=== PATIENT | female | born 1950 | race Caucasian/White ===

== ENCOUNTER 2017-05-22 12:08 | Outpatient (CLI) | payer MEDICARE, OTHER ==
--- NOTE | 2017-05-26 17:54 | Mammography Report ---
DIGITAL SCREENING MAMMOGRAM: 05/22/2017 CLINICAL INDICATION: A 66-year-old with family history of breast cancer, history of late childbearin g for screening. COMPARISON: 03/2014, 01/2013, 11/2011, 07/2009 TECHNIQUE: Routine CC and MLO projections were obtained of the breasts. FINDINGS: The breasts again demonstrate heterogeneously dense fibroglandular parenchyma bilaterally. In the left outer breast, best seen on the CC projection, there is a possible nodule. Further eval uation with spot compression views and possible ultrasound is recommended. No mammographically suspi cious findings are appreciated in the right breast. IMPRESSION: INCOMPLETE EXAMINATION. RECOMMENDATION: Additional evaluation of the left breast as above. BIRADS CATEGORY 0 - INCOMPLETE. STANDARD QUALIFYING STATEMENTS 1. This examination was reviewed with the aid of Computer-Aided Detection (CAD). 2. A negative or benign imaging report should not delay biopsy if clinically suspicious findings are present. Consider surgical consultation if warranted. More than 5% of cancers are not identified by i maging. 3. Dense breasts may obscure an underlying neoplasm. JOB #: [id number] EXT JOB #:[id number]
== END 2017-05-22 12:09 | disposition home or self-care (01) ==
LOC: DI.S 12:08
PROVIDERS: ATTEND Internal Medicine
DX: Z12.31 Encounter for screening mammogram for malignant neoplasm of breast (principal); R92.8 Other abnormal and inconclusive findings on diagnostic imaging of breast; Z80.3 Family history of malignant neoplasm of breast
CPT/HCPCS: 77067

== ENCOUNTER 2017-06-09 13:46 | Outpatient (CLI) | payer MEDICARE, OTHER ==
--- NOTE | 2017-06-09 16:35 | Mammography Report ---
DIGITAL DIAGNOSTIC LEFT MAMMOGRAM: 06/09/2017 CLINICAL INDICATION: Possible nodule on screening. TECHNIQUE: Left true lateral and spot compression views. COMPARISON: 05/22/2017, 04/04/2014, 02/04/2013, 12/17/2011, 08/14/2009. FINDINGS: The left breast again demonstrates heterogeneously dense fibroglandular parenchyma. A poss ible nodule persists in the left upper outer central breast, approximately 1:30 position 6 cm from th e nipple. Further evaluation with left breast ultrasound is recommended. Ultrasound is scheduled for 06/11/2017 at 11:45 a.m. IMPRESSION: INCOMPLETE EXAMINATION. RECOMMENDATION: LEFT BREAST ULTRASOUND, SCHEDULED FOR 06/11/2017 AT 11:45 AM. BIRADS CATEGORY 0-INCOMPLETE. STANDARD QUALIFYING STATEMENTS 1. This examination was reviewed with the aid of Computer-Aided Detection (CAD). 2. A negative or benign imaging report should not delay biopsy if clinically suspicious findings are present. Consider surgical consultation if warranted. More than 5% of cancers are not identified by i maging. 3. Dense breasts may obscure an underlying neoplasm. JOB #: [id number] EXT JOB #:[id number]
== END 2017-06-09 13:47 | disposition home or self-care (01) ==
LOC: DI 13:46
PROVIDERS: ATTEND Internal Medicine
DX: R92.8 Other abnormal and inconclusive findings on diagnostic imaging of breast (principal)

== ENCOUNTER 2017-06-11 11:33 | Outpatient (CLI) | payer MEDICARE, OTHER ==
--- NOTE | 2017-06-11 12:21 | Ultrasound Report ---
LEFT BREAST ULTRASOUND: 06/11/2017 CLINICAL INDICATION: Persistent density on mammogram. TECHNIQUE: Real-time scanning was performed with credit resolution representative static images obtained. FINDINGS: Ultrasound of the left upper outer quadrant was performed. At the 1 o'clock position, 4 c m from the nipple, there is a 5 x 4 x 3 mm cyst. No sonographically suspicious findings are identifi ed. IMPRESSION: SMALL EMBEDDED CYST. RECOMMENDATION: Routine annual screening unless otherwise clinically indicated. BIRADS CATEGORY 2 - BENIGN FINDINGS. JOB #: [id number] EXT JOB #:[id number]
== END 2017-06-11 11:34 | disposition home or self-care (01) ==
LOC: DI 11:33
PROVIDERS: ATTEND Internal Medicine
DX: N60.02 Solitary cyst of left breast (principal)
CPT/HCPCS: 76642

== ENCOUNTER 2017-09-03 10:27 | Outpatient (CLI) | payer MEDICARE, OTHER ==
[2017-09-03 17:59] LABS: BASOPHILS # (AUTO) 0.1 10^3/uL (0.0-0.1); BASOPHILS % (AUTO) 2.2 %; EOSINOPHILS # (AUTO) 0.1 10^3/uL (0.0-0.7); EOSINOPHILS % (AUTO) 2.5 %; LYMPHOCYTES # (AUTO) 1.8 10^3/uL (1.5-3.5); LYMPHOCYTES % (AUTO) 33.6 %; MEAN CORPUSCULAR HEMOGLOBIN 28.7 pg (27.0-31.0); MEAN CORPUSCULAR HGB CONC 33.3 g/dL (32.0-36.0); MEAN CORPUSCULAR VOLUME 86.1 fL (81.0-99.0); MEAN PLATELET VOLUME 10.2 fL (7.9-10.8); MONOCYTES # (AUTO) 0.5 10^3/uL (0.0-1.0); MONOCYTES % (AUTO) 9.3 %; NEUTROPHILS # (AUTO) 2.9 10^3/uL (1.5-6.6); NEUTROPHILS % (AUTO) 52.4 %; NUCLEATED RED BLOOD CELLS AUTO 0.1 /100WBC; RED BLOOD COUNT 5.23 10^6/uL (4.20-5.40); RED CELL DISTRIBUTION WIDTH 13.8 % (12.0-15.0); UNCORRECTED WHITE BLOOD COUNT 5.5 x10^3/uL; WHITE BLOOD COUNT 5.5 x10^3/uL (4.8-10.8)
[2017-09-03 18:17] LABS: ALBUMIN/GLOBULIN RATIO 1.3 (1.0-2.2); BILIRUBIN,TOTAL 0.6 mg/dL (0.2-1.0); CALCIUM 9.1 mg/dL (8.5-10.3); CREATININE 0.9 mg/dL (0.4-1.0); TOTAL PROTEIN 7.7 g/dL (6.7-8.2)
== END 2017-09-03 10:28 | disposition home or self-care (01) ==
LOC: LAB.F 10:27
PROVIDERS: ATTEND Physician Assistant Medical
DX: Z51.81 Encounter for therapeutic drug level monitoring (principal); E03.9 Hypothyroidism, unspecified
CPT/HCPCS: 36415; 80053; 84443; 85025

== ENCOUNTER 2018-04-06 09:06 | Outpatient (CLI) | payer MEDICARE, OTHER | END 2018-04-06 09:07 | disposition home or self-care (01) | LOC: LAB.F 09:06 | PROVIDERS: ATTEND Physician Assistant Medical | DX: G47.9 Sleep disorder, unspecified (principal); E03.9 Hypothyroidism, unspecified | CPT/HCPCS: 36415; 84439; 84443; 84481 ==

== ENCOUNTER 2018-07-27 15:00 | Outpatient (CLI) | payer MEDICARE, OTHER ==
[2018-07-27 17:43] LABS: BASOPHILS # (AUTO) 0.1 10^3/uL (0.0-0.1); BASOPHILS % (AUTO) 1.1 %; EOSINOPHILS # (AUTO) 0.1 10^3/uL (0.0-0.7); EOSINOPHILS % (AUTO) 1.9 %; HGB - HEMOGLOBIN 13.3 g/dL (12.0-16.0); LYMPHOCYTES % (AUTO) 35.1 %; MEAN CORPUSCULAR HEMOGLOBIN 28.2 pg (27.0-31.0); MEAN CORPUSCULAR HGB CONC 33.7 g/dL (32.0-36.0); MEAN CORPUSCULAR VOLUME 83.7 fL (81.0-99.0); MEAN PLATELET VOLUME 9.4 fL (7.9-10.8); MONOCYTES # (AUTO) 0.5 10^3/uL (0.0-1.0); MONOCYTES % (AUTO) 7.9 %; NEUTROPHILS # (AUTO) 3.1 10^3/uL (1.5-6.6); PLT - PLATELET COUNT 279 10^3/uL (130-450); RED CELL DISTRIBUTION WIDTH 14.3 % (12.0-15.0); WHITE BLOOD COUNT 5.8 x10^3/uL (4.8-10.8)
[2018-07-27 18:53] LABS: ALBUMIN 4.1 g/dL (3.2-5.5); ALBUMIN/GLOBULIN RATIO 1.3 (1.0-2.2); BILIRUBIN,TOTAL 0.3 mg/dL (0.2-1.0); CREATININE 0.3 mg/dL (0.4-1.0); TOTAL PROTEIN 7.3 g/dL (6.7-8.2)
== END 2018-07-27 15:01 | disposition home or self-care (01) ==
LOC: LAB.F 15:00
PROVIDERS: ATTEND Physician Assistant Medical
DX: Z51.81 Encounter for therapeutic drug level monitoring (principal); E03.9 Hypothyroidism, unspecified
CPT/HCPCS: 36415; 80053; 84443; 85025

== ENCOUNTER 2019-02-05 09:27 | Outpatient (CLI) | payer MEDICARE, OTHER ==
[2019-02-05 18:15] LABS: CREATININE 0.9 mg/dL (0.4-1.0)
== END 2019-02-05 09:28 | disposition home or self-care (01) ==
LOC: LAB.F 09:27
PROVIDERS: ATTEND Registered Nurse
DX: M54.16 Radiculopathy, lumbar region (principal)
CPT/HCPCS: 36415; 82565

== ENCOUNTER 2019-04-02 07:15 | Outpatient (CLI) | payer MEDICARE, OTHER | END 2019-04-02 23:59 | disposition home or self-care (01) | LOC: LAB.R 07:15 | PROVIDERS: ATTEND Physician Assistant Medical | DX: N39.0 Urinary tract infection, site not specified (principal) | CPT/HCPCS: 87086 ==

== ENCOUNTER 2019-05-17 12:13 | Outpatient (CLI) | payer MEDICARE, OTHER | END 2019-05-17 12:14 | disposition home or self-care (01) | LOC: LAB.S 12:13 | PROVIDERS: ATTEND Physician Assistant Medical | DX: E03.9 Hypothyroidism, unspecified (principal) | CPT/HCPCS: 36415; 84443; 84481 ==

== ENCOUNTER 2019-05-17 12:19 | Outpatient (CLI) | payer MEDICARE, OTHER ==
--- NOTE | 2019-05-18 11:51 | Mammography Report ---
Reason: SCREENING MAMMO Procedure Date: 05/17/2019 Accession Number: [id number] / [id number] Procedure: MGS - Screening Mammo Dig Bilat CPT Code: FULL RESULT: EXAM: Screening Mammo Dig Bilat DATE: 05/17/2019 2:29 PM CLINICAL HISTORY: Sister with breast cancer for routine screening TECHNIQUE: (B) - Bilateral CC and MLO views were obtained. COMPARISON: 06/09/2017, 05/22/2017, 04/04/2014, 02/04/2013. PARENCHYMAL PATTERN: (D) - The breasts demonstrate heterogeneously dense fibroglandular parenchyma bilaterally. FINDINGS: No significant interval change. Nodular area of asymmetric tissue density right upper outer quadrant stable since 2012. There are no new suspicious masses, calcifications, or areas of distortion. IMPRESSION: Negative examination. BI-RADS category 1. RECOMMENDATION: (ANNUAL) - Recommend routine annual screening mammography. BI-RADS CATEGORY: (1) - Negative. STANDARD QUALIFYING STATEMENTS: 1. This examination was not reviewed with the aid of Computer-Aided Detection (CAD). 2. A negative or benign imaging report should not preclude biopsy if clinically suspicious findings are present. 3. Dense breasts may obscure an underlying neoplasm. 4. This examination was reviewed without the aid of 3D breast imaging (tomosynthesis).
== END 2019-05-17 12:20 | disposition home or self-care (01) ==
LOC: DI.S 12:19
DX: Z12.31 Encounter for screening mammogram for malignant neoplasm of breast (principal); Z80.3 Family history of malignant neoplasm of breast
CPT/HCPCS: 77067

== ENCOUNTER 2019-05-26 14:21 | Outpatient (CLI) | payer MEDICARE, OTHER ==
--- NOTE | 2019-05-26 16:15 | Ultrasound Report ---
Reason: ENLARGED THYROID Procedure Date: 05/26/2019 Accession Number: [id number] / [id number] Procedure: US - Head or Neck Soft Tissue CPT Code: FULL RESULT: EXAM: THYROID ULTRASOUND EXAM DATE: 05/26/2019 03:07 PM. CLINICAL HISTORY: ENLARGED THYROID. COMPARISON: None. TECHNIQUE: Real time sonographic imaging of the thyroid was performed by the roving hand. Multiple sales representative business courses static images were saved for review. FINDINGS: THYROID GLAND: Right Lobe: 3.7 x 0.8 x 1.0 cm, volume 1.4 cc. Normal background echotexture. Right Lobe Nodules: None. Left Lobe: 2.7 x 0.9 x 0.8 cm, volume 1.0 cc. Normal background echotexture. Left Lobe Nodules: 0.5 x 0.6 x 0.5 cm hypoechoic, nearly isoechoic inferior pole nodule, solid. Isthmus: 0.15 cm AP. Isthmic Nodules: None. LYMPH NODES: No adenopathy demonstrated in the central or lateral compartment. OTHER: None. IMPRESSION: Singular 0.6 cm hypoechoic solid nodule is amenable to follow-up and does not meet criteria for tissue sampling by FNA at this time. Management recommendations are based on 2015 [place] [employer] Management Guidelines for Adult Patients with Thyroid Nodules and Differentiated Thyroid Cancer. RADIA
== END 2019-05-26 14:22 | disposition home or self-care (01) ==
LOC: DI 14:21
PROVIDERS: ATTEND Physician Assistant Medical
DX: E04.1 Nontoxic single thyroid nodule (principal)
CPT/HCPCS: 76536

== ENCOUNTER 2019-08-02 10:35 | Outpatient (CLI) | payer MEDICARE, OTHER | END 2019-08-02 10:36 | disposition home or self-care (01) | LOC: LAB.S 10:35 | PROVIDERS: ATTEND Physician Assistant Medical | DX: E03.9 Hypothyroidism, unspecified (principal) | CPT/HCPCS: 36415; 84443; 84481 ==

== ENCOUNTER 2020-01-20 10:15 | Outpatient (CLI) | payer MEDICARE, OTHER | END 2020-01-20 23:59 | disposition home or self-care (01) | LOC: LAB.R 10:15 | PROVIDERS: ATTEND Family Medicine | DX: N39.0 Urinary tract infection, site not specified (principal) | CPT/HCPCS: 87086 ==

== ENCOUNTER 2020-01-20 11:35 | Outpatient (CLI) | payer MEDICARE, OTHER ==
[2020-01-20 17:25] LABS: BASOPHILS # (AUTO) 0.1 10^3/uL (0.0-0.1); EOSINOPHILS # (AUTO) 0.1 10^3/uL (0.0-0.7); EOSINOPHILS % (AUTO) 2.2 %; HGB - HEMOGLOBIN 14.6 g/dL (12.0-16.0); LYMPHOCYTES # (AUTO) 1.4 10^3/uL (1.5-3.5); LYMPHOCYTES % (AUTO) 27.6 %; MEAN CORPUSCULAR HEMOGLOBIN 28.2 pg (27.0-31.0); MEAN CORPUSCULAR HGB CONC 32.6 g/dL (32.0-36.0); MEAN CORPUSCULAR VOLUME 86.5 fL (81.0-99.0); MEAN PLATELET VOLUME 11.5 fL (7.9-10.8); MONOCYTES # (AUTO) 0.5 10^3/uL (0.0-1.0); MONOCYTES % (AUTO) 8.8 %; NEUTROPHILS # (AUTO) 3.1 10^3/uL (1.5-6.6); NEUTROPHILS % (AUTO) 60.2 %; PLT - PLATELET COUNT 219 10^3/uL (130-450); RED BLOOD COUNT 5.18 10^6/uL (4.20-5.40); RED CELL DISTRIBUTION WIDTH 13.4 % (12.0-15.0); WHITE BLOOD COUNT 5.1 x10^3/uL (4.8-10.8)
[2020-01-20 17:40] LABS: ALBUMIN 4.3 g/dL (3.2-5.5); ALBUMIN/GLOBULIN RATIO 1.5 (1.0-2.2); BILIRUBIN,TOTAL 0.7 mg/dL (0.2-1.0); CALCIUM 9.1 mg/dL (8.5-10.3); CREATININE 0.8 mg/dL (0.4-1.0); TOTAL PROTEIN 7.2 g/dL (6.7-8.2)
== END 2020-01-20 11:36 | disposition home or self-care (01) ==
LOC: LAB.S 11:35
PROVIDERS: ATTEND Family Medicine
DX: N30.90 Cystitis, unspecified without hematuria (principal)
CPT/HCPCS: 36415; 80053; 85025

== ENCOUNTER 2020-05-21 08:52 | Emergency (ER) | payer MEDICARE, OTHER ==
[2020-05-21 09:01] VITALS: BP 124/67
--- NOTE | 2020-05-21 09:31 | ED Physician Documentation ---
PD HPI LOWER EXT INJURY - Stated complaint Stated Complaint: RT HIP/LEG PX - Chief complaint Chief Complaint: Ext Problem - History obtained from History obtained from: Patient - History of Present Illness PD HPI LOW EXT INJURY LOCATION: Right, Hip, Upper leg, Buttock Type of injury: Fall (her foot went through rotted deck board and her leg went down to about knee level and she twisted and fell mostly to side. No torque of the knee nor ankle. Pain at pelvis/gluteal and hip area, worse today.) Where injury occurred: Home Timing - onset: Yesterday Timing - details: Abrupt onset, Still present Worsened by: Moving, Other (walking full weight) Associated symptoms: No: Weakness, Numbness Similar symptoms before: Has not had sx before Recently seen: Not recently seen Review of Systems Cardiac: denies: Pedal edema, Calf pain Skin: denies: Abrasion (s), Laceration (s) Musculoskeletal: denies: Neck pain, Back pain Neurologic: denies: Focal weakness, Numbness, Altered mental status, Head injury, LOC PD PAST MEDICAL HISTORY - Past Medical History Endocrine/Autoimmune: HyPOthyroidism 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 Psych: Depression, Anxiety - Past Surgical History Past Surgical History: Yes General: Cholecystectomy - Present Medications Home Medications: Ambulatory Orders Medication Instructions Recorded Confirmed Citalopram [CeleXA] 40 mg PO DAILY 09/28/13 09/28/13 Estradiol/Norgestimate [Prefest 1 each PO DAILY 09/28/13 09/28/13 Tablet] Levothyroxine [Synthroid] 75 mcg PO QDAC 09/28/13 09/28/13 Hydrocodone/Acetaminophen [[place] 1 each PO Q6H PRN #15 tablet 05/21/20 5-325 Tablet] Naproxen 375 mg PO BID #20 tablet 05/21/20 - Allergies Allergies/Adverse Reactions: Allergies Allergy/AdvReac Type Severity Reaction Status Date / Time ciprofloxacin AdvReac Severe Respiratory Verified 05/21/20 09:01 - Social History Does the pt smoke?: No Smoking Status: Never smoker Does the pt drink ETOH?: Yes Does the pt have substance abuse?: No - Immunizations Immunizations are current?: Yes PD ED PE NORMAL - Vitals Vital signs reviewed: Yes - General General: Alert and oriented X 3, No acute distress, Well developed/nourished - Back Back: No spinal TTP - Derm Derm: Normal color, Warm and dry - Extremities Extremities: Other (right gluteal, ischial ramus and lateral hip with some tenderness mainly to soft tissue. No bruising felt. Knee and ankle not tender with good ROM. ) - Neuro Neuro: Alert and oriented X 3, No motor deficit, No sensory deficit, Normal speech Results - Vitals Vitals: Vital Signs - 24 hr 05/21/20 08:57 Temperature 36.4 C L Heart Rate 89 Respiratory 18 Rate Blood Pressure 124/67 O2 Saturation 100 Oxygen O2 Source Room air - Rads (name of study) pelvic CT Radiology: Prelim report reviewed, See rad report PD MEDICAL DECISION MAKING - ED course Complexity details: reviewed results, considered differential (twisting as fell, though did have torque of hip/pelvis as fell. Can get CT to ensure no pelvic fx. ), d/w patient Departure - Departure Disposition: 01 Home, Self Care Clinical Impression: Fall through floor, initial encounter Hip strain Qualifiers: Encounter type: initial encounter Laterality: right Qualified Code(s): S76.011A - Strain of muscle, fascia and tendon of right hip, initial encounter Condition: Stable Record reviewed to determine appropriate education?: Yes Instructions: ED Sprain Hip Follow-Up: Gema Melton ARNP [Primary Care Provider] - Prescriptions: Naproxen 375 mg PO BID #20 tablet Hydrocodone/Acetaminophen [[place] 5-325 Tablet] 1 each PO Q6H PRN #15 tablet PRN Reason: Pain Comments: The bony structures of your hip and pelvis appear normal on CT scan. I presume you strained the muscles and ligaments through the hip and pelvis. Use less weight onto the hip and pelvis by use of crutches or cane for partial weightbearing. Anti-inflammatories such as naproxen 2-3 times daily. To that add Tylenol or hydrocodone half to 1 tablet every 6-8 hours if needed for pain. Ice to the sore area periodically today and tomorrow. I would anticipate improvement over the next several days and resolution in within a week. Recheck if not following that time course. Discharge Date/Time: 05/21/20 10:53
[2020-05-21] MEDS ORDERED: KETOROLAC 15 MG/ML VIAL IM STA (09:47)
[2020-05-21] MEDS ORDERED: HYDROcod/ACETAM 5/325 MG TABLET PO STA (09:47)
--- NOTE | 2020-05-21 10:19 | CT Report ---
PROCEDURE: PELVIS WO INDICATIONS: fall/ right sacral/iliac area pain TECHNIQUE: Noncontrast 3 mm axial sections acquired through the bony pelvis, with coronal and sagittal reformatt ing. For radiation dose reduction, the following was used: automated exposure control, adjustment of mA and/or kV according to patient size. COMPARISON: None. FINDINGS: Image quality: Excellent. Bones: No pelvic fractures or dislocations. No sacral fractures identified. Lower lumbar facet arthr opathy. Soft tissues: Unremarkable. IMPRESSION: No evidence acute pelvic fracture or dislocation. Lower lumbar facet arthropathy. Reviewed by: Ld Fletcher MD on 05/21/2020 9:18 AM ALDO Approved by: Ld Fletcher MD on 05/21/2020 9:18 AM ALDO Station ID: [id number]
== END 2020-05-21 10:53 | disposition home or self-care (01) ==
LOC: ED 08:52
DX: S76.011A Strain of muscle, fascia and tendon of right hip, initial encounter (principal); W13.3XXA Fall through floor, initial encounter; Y92.008 Other place in unspecified non-institutional (private) residence as the place of occurrence of the external cause
CPT/HCPCS: 72192; 96372; 99284; A9270

== ENCOUNTER 2021-10-18 16:03 | Outpatient (CLI) | payer MEDICARE, OTHER ==
[2021-10-18 20:19] LABS: BASOPHILS # (AUTO) 0.1 10^3/uL (0.0-0.1); BASOPHILS % (AUTO) 1.2 %; EOSINOPHILS # (AUTO) 0.1 10^3/uL (0.0-0.7); EOSINOPHILS % (AUTO) 2.1 %; HCT - HEMATOCRIT 47.3 % (37.0-47.0); HGB - HEMOGLOBIN 15.5 g/dL (12.0-16.0); LYMPHOCYTES # (AUTO) 1.9 10^3/uL (1.5-3.5); LYMPHOCYTES % (AUTO) 33.7 %; MEAN CORPUSCULAR HEMOGLOBIN 28.8 pg (27.0-31.0); MEAN CORPUSCULAR HGB CONC 32.8 g/dL (32.0-36.0); MEAN CORPUSCULAR VOLUME 87.8 fL (81.0-99.0); MONOCYTES # (AUTO) 0.4 10^3/uL (0.0-1.0); MONOCYTES % (AUTO) 7.1 %; NEUTROPHILS # (AUTO) 3.2 10^3/uL (1.5-6.6); NEUTROPHILS % (AUTO) 55.7 %; PLT - PLATELET COUNT 236 10^3/uL (130-450); RED BLOOD COUNT 5.39 10^6/uL (4.20-5.40); RED CELL DISTRIBUTION WIDTH 13.2 % (12.0-15.0); WHITE BLOOD COUNT 5.8 x10^3/uL (4.8-10.8)
[2021-10-18 20:38] LABS: ALBUMIN 4.8 g/dL (3.2-5.5); ALBUMIN/GLOBULIN RATIO 1.5 (1.0-2.2); ALKALINE PHOSPHATASE 54 IU/L (42-121); ALT ALANINE AMINOTRANSFERASE 42 IU/L (10-60); AST ASPARTATE AMINOTRANSFERASE 35 IU/L (10-42); BILIRUBIN,TOTAL 0.5 mg/dL (0.2-1.0); BUN - BLOOD UREA NITROGEN 25 mg/dL (6-20); CALCIUM 9.5 mg/dL (8.5-10.3); CARBON DIOXIDE - CO2 27 mmol/L (21-32); CHLORIDE 102 mmol/L (101-111); CHOL/HDL RATIO 3.6 (<4.4); CHOLESTEROL 212 mg/dL; CREATININE 0.9 mg/dL (0.4-1.0); GFR - MDRD 62 (>89); GLUCOSE 90 mg/dL (70-100); HDL CHOLESTEROL 59 mg/dL; LDL CHOLESTEROL,CALCULATED 123 mg/dL; LDL/HDL RATIO 2.1 (<4.4); POTASSIUM 4.4 mmol/L (3.5-5.0); SODIUM 139 mmol/L (135-145); TOTAL PROTEIN 8.1 g/dL (6.7-8.2); TRIGLYCERIDES 149 mg/dL; VLDL CHOLESTEROL 30 mg/dL
[2021-10-18 20:50] LABS: T4 (THYROXINE) 7.8 ug/dL (6.09-12.23)
[2021-10-18 20:52] LABS: THYROID STIMULATING HORMONE 2.28 uIU/mL (0.34-5.60)
[2021-10-18 20:59] LABS: FERRITIN 30.7 ng/mL (11.0-306.8)
== END 2021-10-18 16:04 | disposition home or self-care (01) ==
LOC: LAB.S 16:03
PROVIDERS: ATTEND Registered Nurse
DX: Z13.228 Encounter for screening for other metabolic disorders (principal); Z13.220 Encounter for screening for lipoid disorders; L65.9 Nonscarring hair loss, unspecified; Z13.0 Encounter for screening for diseases of the blood and blood-forming organs and certain disorders involving the immune mechanism
CPT/HCPCS: 36415; 80053; 80061; 82607; 82728; 83721; 84403; 84436; 84443; 84480; 85025

== ENCOUNTER 2023-01-01 09:53 | Emergency (ER) | payer MEDICARE, OTHER ==
[2023-01-01 10:31] VITALS: BP 127/71
== END 2023-01-01 12:50 | disposition left against medical advice (07) ==
LOC: ED 09:53
DX: Z53.21 Procedure and treatment not carried out due to patient leaving prior to being seen by health care provider (principal)